=== PATIENT | male | born 1960 | race Caucasian/White ===

== ENCOUNTER 2016-11-06 13:26 | Emergency (ER) | payer MEDICARE ==
[~2016-11-06 13:26] MED LIST: ABILIFY10 M1 PO; ABILIFY5 MG; ALBUTEROL17 GM INH; AMITRIPTYLINE H25 MG; AMOXICILLIN875 MG PO; AMOXIL500 MG PO; APRESOLINE50 MG; ASPIRIN81 M1 PO; BENADRYL25 M3 PO; FLEXERIL10 MG; FLOXIN10 ML LEFT EAR; KLONOPIN0.5 MG; LAMICTAL100 M2 PO; LIPITOR40 M1 PO; LORTAB 10/500 T1 TAB; LORTAB 5/500 TA1 TAB; LYRICA75 MG; PROZAC10 MG; RISPERDAL2 M2 PO; SYNTHROID25 MC1 PO; ULTRAM50 MG; ZANAFLEX4 MG; ZOLOFT100 M1 PO; ZOLOFT100 MG; ZOLOFT50 MG
[2016-11-06] MEDS ORDERED: NORCO 5-325 TA1 EACH PO (15:10)
[2016-11-06] MEDS ORDERED: PENICILLIN V P500 M1 PO (15:10)
== END 2016-11-06 15:27 ==
LOC: EDMED 13:26
PROC: 0C9XXZ1 Drainage of Lower Tooth, External Approach, Multiple (ICD-10-PCS; principal; 2016-11-06)
DX: K04.7 Periapical abscess without sinus (principal); F17.200 Nicotine dependence, unspecified, uncomplicated